=== PATIENT | male | born 1995 | race Hispanic/Latino ===

== ENCOUNTER 2018-07-06 10:25 | Emergency (ER) | payer SELFPAY ==
[2018-07-06 11:02] LABS: #Basophils 0.1 thou/uL (0.0-0.2); #Eosinphils 0.1 thou/uL (0.0-0.7); #Lymphocytes 2.5 thou/uL (1.20-3.40); #Monocytes 0.8 thou/uL (0.11-0.59); #Neutrophils 3.9 thou/uL (1.40-6.50); %Basophils 0.8 % (0.0-1.0); %Eosinophils 1.9 % (0.0-10.0); %Lymphocytes 33.8 % (21.0-51.0); %Monocytes 10.2 % (0.0-10.0); %Neutrophils 53.3 % (42.0-75.0); Hemoglobin 15.9 g/dL (14.0-18.0); Mean Corpuscular Hemoglobin 31.5 pg (27.0-31.0); Mean Corpuscular Volume 92.8 fL (78.0-98.0); Mean Platelet Volume 7.1 fL (7.4-10.4); Platelet Count 296 thou/uL (130-400); RBC Distribution Width 11.3 % (11.5-14.5); Red Blood Cell (RBC) Count 5.05 mill/uL (4.70-6.10); White Blood Cell (WBC) Count 7.4 thou/uL (4.8-10.8)
[2018-07-06 11:12] LABS: Bilirubin Negative (Negative); Blood, Urine Negative (Negative); Clarity CLEAR (Clear); Glucose, Urine (Dipstick) Negative (Negative); Leukocyte Negative (Negative); Nitrite Negative (Negative); Protein, Urine (Dipstick) Negative (Neg-Trace); Specific Gravity, Urine 1.022 (1.002-1.036); Urobilinogen 0.2 mg/dL (0.2-1.0); pH, Urine 6.5 (5.0-9.0)
[2018-07-06] MEDS ORDERED: Morphine 2 MG/ML SYRINGE ONE (11:43)
[2018-07-06] MEDS ORDERED: Ondansetron HCl/PF 4 MG/2 ML Vial ONE (11:44)
[2018-07-06 11:45] LABS: ALT (SGPT) 49 U/L (8-55); AST (SGOT) 25 U/L (5-34); Albumin 4.6 g/dL (3.5-5.0); Alkaline Phosphatase 87 U/L (40-150); Anion Gap 13 mmol/L (10-20); BUN (Urea Nitrogen) 14 mg/dL (8.9-20.6); Bilirubin, Total 0.4 mg/dL (0.2-1.2); Calc. Creatinine Clearance 0 mL/min (70-130); Calcium 9.7 mg/dL (7.8-10.44); Carbon Dioxide 22 mmol/L (22-29); Chloride 105 mmol/L (98-107); Estimated GFR-MDRD Greater than 90; Globulin 3.4 g/dL (2.4-3.5); Glucose 96 mg/dL (70-105); Lipase 27 U/L (8-78); Potassium 4.5 mmol/L (3.5-5.1); Sodium 135 mmol/L (136-145)
[2018-07-06] MEDS ORDERED: Ketorolac Tromethamine 30 MG/ML VIAL ONE (11:45)
--- NOTE | 2018-07-06 12:37 | RAD ---
PORTABLE CHEST ONE VIEW: Date: 07-06-18 Time: 11:29 a.m. History: Chest pain. FINDINGS: The heart size is normal. The lungs are expanded and clear. The bony thorax is normal. IMPRESSION: Normal exam. POS: [facility]
[2018-07-06] MEDS ORDERED: ISOVUE-370 76%-LOCM 1 ML ONE (12:49)
--- NOTE | 2018-07-06 14:11 | CT ---
CT ANGIOGRAM CHEST WITH CONTRAST: 07/06/18 HISTORY: Chest pain. COMPARISON: None. FINDINGS: CT angiogram chest performed after the intravenous administration of contrast. 3D rendering is provid ed. No proximal segmental pulmonary arterial filling defect. No pericardial effusion. The aortic size is normal. No adenopathy. The lungs are clear without infiltrate. No abnormal pulmonary nodule. No pneumothorax or effusion. No acute osseous abnormality. No displaced rib fracture. IMPRESSION: 1. No proximal segmental pulmonary arterial filling defect. 2. No acute intrathoracic abnormality. POS: [facility]
--- NOTE | 2018-07-09 13:25 | EKG ---
Test Reason : CHEST PAIN Blood Pressure : / mmHG Vent. Rate : 074 BPM Atrial Rate : 074 BPM P-R Int : 124 ms QRS Dur : 090 ms QT Int : 360 ms P-R-T Axes : 005 067 020 degrees QTc Int : 399 ms Normal sinus rhythm Normal ECG Confirmed by BRONSON MEZA ([id number]), non linear editor DORA BAGLEY ([id number]) on 07/09/2018 1:24:28 PM Referred By: Confirmed By:BRONSON MEZA
== END 2018-07-06 13:15 | disposition home or self-care (01) ==
LOC: ERS 10:25
DX: R07.9 Chest pain, unspecified (principal); R05 Cough; K92.0 Hematemesis
CPT/HCPCS: 36415; 71045; 71275; 80053; 81003; 83690; 85025; 85379; 93005; 96374; J1885; J2270; J2405

== ENCOUNTER 2018-07-17 00:10 | Observation (INO) | payer SELFPAY ==
[2018-07-17 00:32] LABS: Bilirubin Negative (Negative); Blood, Urine Negative (Negative); Clarity CLEAR (Clear); Glucose, Urine (Dipstick) Negative (Negative); Leukocyte Negative (Negative); Nitrite Negative (Negative); Protein, Urine (Dipstick) Trace mg/dL (Neg-Trace); Specific Gravity, Urine 1.006 (1.002-1.036); Urobilinogen 0.2 mg/dL (0.2-1.0); pH, Urine 6.5 (5.0-9.0)
[2018-07-17 00:35] LABS: PTT 34.2 SEC (22.9-36.1); Prothrombin Time 13.5 SEC (12.0-14.7)
[2018-07-17 00:41] LABS: ALT (SGPT) 69 U/L (8-55); AST (SGOT) 30 U/L (5-34); Alkaline Phosphatase 80 U/L (40-150); Anion Gap 16 mmol/L (10-20); BUN (Urea Nitrogen) 12 mg/dL (8.9-20.6); Bilirubin, Total 0.4 mg/dL (0.2-1.2); Calc. Creatinine Clearance 0 mL/min (70-130); Carbon Dioxide 21 mmol/L (22-29); Chloride 107 mmol/L (98-107); Estimated GFR-MDRD Greater than 90; Globulin 3.4 g/dL (2.4-3.5); Glucose 107 mg/dL (70-105); Lipase 29 U/L (8-78); Potassium 3.9 mmol/L (3.5-5.1); Protein, Total 8.4 g/dL (6.0-8.3); Sodium 140 mmol/L (136-145)
[2018-07-17 00:42] LABS: Acetaminophen Less than 6.0 mcg/mL (10.0-30.0); Alcohol 223 mg/dL (Less than 10); CK (CPK) 139 U/L (30-200); Salicylate Less than 8.0 mg/dL (15.0-30.0)
[2018-07-17 00:44] LABS: Bacteria/HPF None Seen HPF (None Seen); Band 6 % (5-11); Hemoglobin 15.7 g/dL (14.0-18.0); Hyaline Casts/LPF 0-3 HYALINE CAST LPF (0-3 Hyaline); Lymphocytes 48 % (21-51); MDiff Complete? YES; Mean Corpuscular HGB CONC 33.7 g/dL (32.0-36.0); Mean Corpuscular Hemoglobin 31.5 pg (27.0-31.0); Mean Corpuscular Volume 93.5 fL (78.0-98.0); Monocytes 11 % (0-10); Neutrophil 35 % (42-75); Platelet Count 318 thou/uL (130-400); RBC Distribution Width 11.3 % (11.5-14.5); RBC/HPF None Seen HPF (0-3); Red Blood Cell (RBC) Count 4.97 mill/uL (4.70-6.10); Squamous Epithelial None Seen HPF (0-3); WBC/HPF None Seen HPF (0-3); White Blood Cell (WBC) Count 11.8 thou/uL (4.8-10.8)
[2018-07-17] MEDS ORDERED: Fentanyl 100 MCG/2 ML VIAL ONE ×2 (00:45→02:06)
[2018-07-17 00:49] LABS: CKMB 1.7 ng/mL (0-6.6); Troponin I Less than 0.010 ng/mL (< 0.028)
[2018-07-17] MEDS ORDERED: Propofol 1,000 MG/100 ML VIAL IV ONE (00:53)
[2018-07-17 00:56] LABS: Actual Bicarbonate (HCO3a) 21.5 mEq/L (22-28); Analyzer IN Cardio ER; Base Excess (BEa) -4.2 mEq/L (-2.0 to +3.0); CO2 Tension 41.7 mmHg (35.0-45.0); Calcium, Ionized 1.11 mmol/L (1.12-1.30); Carboxyhemoglobin (COHb) 0.1 gm% (0.0-3.0); Hemoglobin (Hb) 14.6 g/dL (14.0-18.0); O2 Tension (PaO2) 92.1 mmHg (80.0-100.0); Potassium - ABG Lab 3.81 mmol/L (3.70-5.30); pH, Arterial 7.33 (7.35-7.45)
[2018-07-17 01:11] LABS: ALV-art Gradient 212.275 (0-20); Puncture Site LRA
[2018-07-17 01:48] LABS: Medtox Reader # READER 4; Phencyclidine (PCP) Not Detected (NotDetected); THC/Cannabinoid Screen Not Detected (NotDetected)
[2018-07-17 01:49] LABS: Amphetamine Not Detected (NotDetected); Barbiturates Screen Not Detected (NotDetected); Benzodiazepine Screen Not Detected (NotDetected); Cocaine Metabolite Screen Detected (NotDetected); Medtox Control Line Valid? VALID (VALID); Methadone Not Detected (NotDetected); Methamphetamine Not Detected (NotDetected); Opiate Screen Not Detected (NotDetected); Oxycodone Screen Not Detected (NotDetected); Tricyclic Screen Not Detected (NotDetected)
[2018-07-17 05:10] LABS: Lactic Acid 2.6 mmol/L (0.5-2.2)
[2018-07-17] MEDS ORDERED: Ondansetron ODT 4 MG TAB PO PRN (06:00)
[2018-07-17] MEDS ORDERED: Acetaminophen 500 MG TAB PO PRN (06:00)
[2018-07-17] MEDS ORDERED: Ondansetron PF 4 MG/2 ML Vial IVP PRN (06:00)
[2018-07-17] MEDS ORDERED: Dextrose 5% in Water 1,000 ML IV PRN (06:00)
[2018-07-17] MEDS ORDERED: Ibuprofen 800 MG TAB PO PRN (06:00)
[2018-07-17] MEDS ORDERED: Dextrose 50% Abboject 50 ML SYRINGE SLOW IVP PRN (06:00)
[2018-07-17] MEDS ORDERED: traMADol HCl 50 MG TAB PO PRN (06:00)
[2018-07-17] MEDS: Sodium Chloride 0.9% 1,000 ML IV SCH ×2 (06:45→19:42)
--- NOTE | 2018-07-17 07:33 | RAD ---
FRONTAL VIEW CHEST: Date: 07/17/18 COMPARISON: 07/06/18. CLINICAL INDICATION: Emergency exam, injury with pain. FINDINGS: Endotracheal tube is present with tip at the thoracic inlet. There is hypoinflation of lungs, and obed vation of the right hemidiaphragm. There is prominence of the cardiomediastinal silhouette. Supine po sitioning limits evaluation for detection of pneumothorax. IMPRESSION: Prominent cardiomediastinal silhouette with bilateral perihilar opacities. Findings could relate to c omponent of edema and/or contusion. Recommend continued imaging follow-up. POS: [facility]
--- NOTE | 2018-07-17 07:34 | RAD ---
FRONTAL VIEW PELVIS: Date: 07/17/18 CLINICAL HISTORY: Injury, pain. FINDINGS: There is a catheter probe projecting over the midline of the low pelvis. Hip joints are maintained bi laterally. No abnormal diastasis of the symphysis pubis or the sacroiliac joints. IMPRESSION: No acute osseous abnormality of the pelvis identified. POS: [facility]
--- NOTE | 2018-07-17 07:35 | CT ---
CT OF HEAD NONCONTRAST: Date: 07/17/18 CLINICAL HISTORY: Post-traumatic injury, pain. FINDINGS: The ventricular system is normal in size. There is no acute intracranial hemorrhage, mass effect, or midline shift. Partially imaged supportive tube is seen at the oral cavity with associated retained s ecretions. There is no depressed calvarial fracture. No pneumocephalus. IMPRESSION: No acute intracranial hemorrhage or mass effect. POS: [facility]
--- NOTE | 2018-07-17 07:36 | CT ---
CERVICAL SPINE CT NONCONTRAST: Date: 07/17/18 INDICATION: Post-traumatic pain, injury. FINDINGS: Craniocervical junction is intact. Vertebral body heights and spinal alignment of the cervical spine are maintained. There is no retropulsion of bone into the vertebral canal. IMPRESSION: 1. No acute cervical spine fracture or subluxation. 2. Incidental note of pleural and parenchymal opacities of the imaged upper lung zones. POS: [facility]
--- NOTE | 2018-07-17 07:45 | CT ---
CT CHEST WITH CONTRAST CT ABDOMEN AND PELVIS WITH CONTRAST CT THORACIC SPINE WITH CONTRAST AND REFORMATTED IMAGING CT LUMBAR SPINE WITH CONTRAST AND REFORMATTED IMAGING: Date: 07/17/18 CLINICAL HISTORY: Post-traumatic pain, injury. FINDINGS: There is abnormal bilateral posteriorly located consolidation of each lung with air bronchograms. The re is associated mild pleural based thickening/irregularity. No discrete pneumothorax. Endotracheal t ube is present with tip above the carmenza. There is no post-traumatic aneurysmal dilatation of the thoracoabdominal aorta. There is increased de nsity of the anterior, superior mediastinum, which may relate to thymic tissue in a patient of this a ge. Low attenuation hepatic parenchyma may be related to hepatic steatosis versus phase of enhancemen t. There is no definite acute post-traumatic sequelae of the solid abdominal organs. The unopacified bowel is limited in assessment. Drake catheter is in place. Imaging of the thoracolumbar spine reveal s no compression fracture or traumatic subluxation. IMPRESSION: 1. Abnormal bilateral posteriorly located pulmonary and parenchymal consolidation with air bronchogr ams. This could be on the basis of contusion or alternatively aspiration pneumonitis given clinical s etting and location of findings. Recommend clinical correlation, as well as radiographic imaging foll ow-up. 2. Added density of the superior mediastinum is favored to reflect thymic tissue rather than mediast inal hematoma. Recommend clinical correlation to confirm hemodynamically stability. There is no discr ete abnormality of the thoracoabdominal aorta. Telephone call with findings placed to physician, Enoc Umaña, at 0055 hours on 07/17/18. CODE CR. POS: [facility]
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
[2018-07-17 08:22] VITALS: BMI 37.8
[2018-07-17] MEDS ORDERED: Famotidine 20 MG TAB PO SCH (09:00)
--- NOTE | 2018-07-17 09:54 | RAD ---
UPRIGHT PORTABLE CHEST 1 VIEW: Date: 07/17/18 HISTORY: 22-year-old male with history of follow-up chest injury. COMPARISON: 07/16/18. FINDINGS: The previously noted endotracheal tube has been removed. There is improved aeration of both lungs. He art size is borderline. No pneumothorax, pleural effusion, or other acute process. IMPRESSION: No acute intrathoracic disease. POS: [facility]
[2018-07-17] MEDS ORDERED: ISOVUE-370 76%-LOCM 1 ML ONE (15:14)
[2018-07-17 19:26] VITALS: BP 135/77; TEMP 99.3
--- NOTE | 2018-07-23 12:16 | EKG ---
Test Reason : Blood Pressure : / mmHG Vent. Rate : 074 BPM Atrial Rate : 074 BPM P-R Int : 140 ms QRS Dur : 098 ms QT Int : 400 ms P-R-T Axes : 007 083 028 degrees QTc Int : 444 ms Normal sinus rhythm Early repolarization Normal ECG #2 Confirmed by PREETI BRUNSON MD ([id number]), writer editor DACIA BURKS ([id number]) on 07/23/2018 12:15:44 PM Referred By: Confirmed By:PREETI BRUNSON MD
--- NOTE | 2018-07-23 12:16 | EKG ---
Test Reason : Blood Pressure : / mmHG Vent. Rate : 073 BPM Atrial Rate : 073 BPM P-R Int : 138 ms QRS Dur : 108 ms QT Int : 414 ms P-R-T Axes : 011 082 022 degrees QTc Int : 456 ms Normal sinus rhythm ST elevation, consider early repolarization, pericarditis, or injury Abnormal ECG Confirmed by NANNETTE DE LA CRUZ, PREETI ([id number]), associate entertainment editor DACIA BURKS ([id number]) on 07/23/2018 12:15:35 PM Referred By: Confirmed By:PREETI BRUNSON MD
== END 2018-07-17 16:54 | disposition home or self-care (01) ==
LOC: ERS 00:10 → INTOOBSV 01:04 → ERHOLD 01:04 → SURG A 05:51
PROVIDERS: ADMIT Specialist; ATTEND Specialist
DX: S06.0X9A Concussion with loss of consciousness of unspecified duration, initial encounter (principal); R40.2431 Glasgow coma scale score 3-8, in the field [EMT or ambulance]; J96.90 Respiratory failure, unspecified, unspecified whether with hypoxia or hypercapnia; F10.129 Alcohol abuse with intoxication, unspecified; G89.11 Acute pain due to trauma; Y90.7 Blood alcohol level of 200-239 mg/100 ml; W01.0XXA Fall on same level from slipping, tripping and stumbling without subsequent striking against object, initial encounter
CPT/HCPCS: 36415; 51702; 70450; 71045; 71260; 72125; 72170; 74177; 80053; 80306; 80307; 81001; 82150; 82550; 82553; 82805; 83605; 83690; 84443; 84484; 85025; 85610; 85730; 86850; 86900; 86901; 90471; 90686; 93005; 94002; 94640; 96361; 96365; 96366; 96375; 96376; G0008; G0378; G0390; J2704; J3010